=== PATIENT | male | born 1995 | race African-American/Black ===

== ENCOUNTER 2017-09-21 18:50 | Emergency (ER) | payer BC ==
[2017-09-21 19:02] VITALS: BP 148/78
--- NOTE | 2017-09-21 21:10 | UC ---
Lower Extremity/Ankle HPI - HPI Summary HPI Summary: 22 y/o male presents to the urgent care c/o sudden left foot pain after a sprinting drill at football practice this morning. Pt reports pain is sharp, constant, 8/10 over the top of the foot and at the base of great toe. Pain is wore when he flexes the foot. He has not taking anything to alleviate pain or applied ice. Pt is able to bear weight and amulate s/o any difficulty. Pt denies fever, numbness and tingling, SOB, chest pain, abdominal pain, N/V/D. - History of Current Complaint Chief Complaint: UCLowerExtremity Stated Complaint: LEFT FOOT INJURY Time Seen by Provider: 09/21/17 21:01 Hx Obtained From: Patient Onset/Duration: Sudden Onset, Lasting Hours - 8hrs, Still Present Severity Initially: Moderate Severity Currently: Moderate Pain Intensity: 8 Pain Scale Used: 0-10 Numeric Aggravating Factor(s): Ambulation Alleviating Factor(s): Rest Able to Bear Weight: Yes - Risk Factors Gout Risk Factors: Negative DVT Risk Factors: Negative Septic Arthritis Risk Factor: Extremes of Age - Allergies/Home Medications Allergies/Adverse Reactions: Allergies Allergy/AdvReac Type Severity Reaction Status Date / Time No Known Allergies Allergy Verified 09/21/17 19:02 PMH/Surg Hx/FS Hx/Imm Hx Previously Healthy: Yes - Pt denies PMHX - Surgical History Surgical History: None - Family History Known Family History: Positive: Hypertension - Social History Occupation: Student Lives: With Family Alcohol Use: Weekly Substance Use Type: None Smoking Status (MU): Never Smoked Tobacco Review of Systems Constitutional: Negative Skin: Negative Eyes: Negative ENT: Negative Respiratory: Negative Cardiovascular: Negative Gastrointestinal: Negative Genitourinary: Negative Motor: Decreased ROM - LF foot Neurovascular: Negative Musculoskeletal: Decreased ROM - LF foot, Other: - LF foot pain s/p injury Neurological: Negative Psychological: Negative Is Patient Immunocompromised?: No All Other Systems Reviewed And Are Negative: Yes Physical Exam Triage Information Reviewed: Yes Vital Signs: Initial Vital Signs Temp 98.9 F 09/21/17 18:59 Pulse 78 09/21/17 18:59 Resp 16 09/21/17 18:59 BP 148/78 09/21/17 18:59 Pulse Ox 99 09/21/17 18:59 - Additional Comments Vital Signs Reviewed: Yes General : well developed, well nourished male w/o any apparent distress Eyes: Positive: Conjunctiva Clear - PERRLA, EOMI ENT: Positive: Normal ENT inspection, Hearing grossly normal, Pharynx normal, TMs normal Neck: Positive: Supple, Nontender, No Lymphadenopathy Respiratory: Positive: Chest non-tender, Lungs clear, Normal breath sounds, No respiratory distress Cardiovascular: Positive: RRR, No Murmur, Pulses Normal Abdomen Description: Positive: Nontender, No Organomegaly, Soft. Negative: CVA Tenderness (R), CVA Tenderness (L) Bowel Sounds: Positive: Present Musculoskeletal: Positive: Strength Intact, ROM Intact, No Edema, LF Foot/Toes : Pt is able to bear weight w/o limping. No surface trauma, ecchymosis, lesions, ulcers or break in skin integrity. Mild erythema over the dorsal side of foot around navicular bone. No bony step-off, Poin tenderness to palpation over the dorsal side of mid foot , no tenderness of hindfoot, Decrease plantar/dorsiflexion, inversion/eversion due to pain. Distal motor and neurovascular status are intact.FROM of all toes Neurological Exam: Normal Psychological Exam: Normal Skin Exam: Normal Lower Extremity Course/Dx - Course Course Of Treatment: 22 y/o male presents to the urgent care c/o sudden left foot pain after a sprinting drill at football practice this morning. Pt reports pain is sharp, constant, 8/10 over the top of the foot and at the base of great toe. Pain is wore when he flexes the foot. He has not taking anything to alleviate pain or applied ice. Pt is able to bear weight and amulate s/o any difficulty. Pt denies fever, numbness and tingling, SOB, chest pain, abdominal pain, N/V/D. Hx obtained. LF foot X-ray ordered, Impression:There was no recent acute fracture,likely old injury at the disctal interphalengeal joint of the left great toe as per radiologist. Pt's foot immobilized with pranay-bandage and given a post-op shoe to avoid flexion. Advised RICE, and Rx Naproxen PO for pain , If not improvement of symptoms to f/u with Orthopedic DR referral for further evaluation and treatment. Pt's BP is elevated today advised to decrease salt in diet, monitor BP and f/u with PCP for further management. Pt understood and agreed with D/C instructions - Differential Dx/Diagnosis Differential Diagnosis/HQI/PQRI: Contusion, Fracture (Closed), Sprain, Strain, Tendonitis Provider Diagnoses: 1- Left foot pain s/p injury. 2- Left #1 distal IPJ old fracture. 3- Elevated BP w/o Hx of HTN Discharge - Discharge Plan Condition: Stable Disposition: HOME Prescriptions: Naproxen [Naproxen 500 mg] 500 mg PO Q8H PRN #30 tab PRN Reason: Pain Patient Education Materials: Foot Sprain (ED), Low-Sodium Diet (ED) Referrals: [facility] [place] [facility] [Outside] - 1 Week Conrad Win MD [Medical Doctor] - 1 Week Additional Instructions: 1-Please take medications as directed to alleviate pain and swelling. 2-Please apply ice, keep your foot immobilized with the Pranay bandage and post-op shoe. Avoid strenuous exercise or standing for long periods of time 3- Please f/u with your Orthopedic DR Win in 1 week if not improvement of symptoms for further evaluation and treatment. 4-Your BP is elevated today. please decrease salt in your diet, monitor BP and if it continues to be elevated please f/u with your PCP for further management
--- NOTE | 2017-09-21 21:37 | RAD ---
Indication: Left foot pain. 3 views of left foot demonstrates no fracture is noted. There is bony fragment adjacent to the medial aspect of the distal end of the proximal phalanx. This is likely old. No recent fracture is identified. IMPRESSION: Likely old injury at the distal interphalangeal joint of the great toe. No recent fracture is identified.
== END 2017-09-21 22:20 | disposition home or self-care (01) ==
LOC: UCCORT 18:50
DX: M79.672 Pain in left foot (principal); S92.422D Displaced fracture of distal phalanx of left great toe, subsequent encounter for fracture with routine healing; X58.XXXD Exposure to other specified factors, subsequent encounter; R03.0 Elevated blood-pressure reading, without diagnosis of hypertension
CPT/HCPCS: 99212; G0463

== ENCOUNTER 2018-05-05 18:52 | Emergency (ER) | payer BC ==
[2018-05-05 20:30] VITALS: BP 149/72
--- NOTE | 2018-05-05 20:59 | UC ---
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 Has had persistent pain with deep inspiration and movement. No analgesics used. No vomiting. No head injury, neck pain, no abdominal pain or vomiting. - History Of Current Complaint Chief Complaint: UCGeneralIllness Stated Complaint: RIB INJURY Time Seen by Provider: 05/05/18 20:30 Hx Obtained From: Patient Onset/Duration: Sudden Onset, Lasting Hours Onset Of Pain: Immediate Severity Initially: Moderate Severity Currently: Moderate Pain Intensity: 7 Mechanism Of Injury: Blunt Trauma, Direct Blow Aggravating Factor(s): Movement, Deep Breathing Alleviating factor(s): Rest Associated Signs And Symptoms: Positive: SOB - now resolved, felt out of breath initially. 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 Gastrointestinal: Negative Genitourinary: Negative Motor: Negative Neurovascular: Negative Musculoskeletal: Negative Neurological: Negative Psychological: Negative Is Patient Immunocompromised?: No All Other Systems Reviewed And Are Negative: Yes Physical Exam Triage Information Reviewed: Yes Appearance: Well-Appearing, Pain Distress - moderate with movement Vital Signs: Initial Vital Signs Temp 98.2 F 05/05/18 20:21 Pulse 56 05/05/18 20:21 Resp 14 05/05/18 20:21 BP 149/72 05/05/18 20:21 Pulse Ox 100 05/05/18 20:21 ENT: Positive: Pharynx normal Dental Exam: Normal Neck: Positive: Supple, Nontender, No Lymphadenopathy Respiratory Exam: Other - tenderness to palpation left lower chest wall in anterior axillary line. No bruising or deformity. Respiratory: Positive: Lungs clear, Normal breath sounds. Negative: Decreased breath sounds, Accessory muscle use Cardiovascular: Positive: RRR, No Murmur Abdomen Description: Positive: Nontender, No Organomegaly, Soft Bowel Sounds: Positive: Present Musculoskeletal Exam: Other - moving slowly, but neck and spinal movements normal. Musculoskeletal: Positive: Strength Intact Neurological: Positive: Alert, Muscle Tone Normal Skin Exam: Normal Diagnostics - Laboratory Diagnostic Studies Completed/Ordered: Xray left rib views without evidence of fracture per M H read. Normal chest with normal lung honeycutt. No radiology read available. Truncal Trauma Course/Dx - Course Course Of Treatment: analgesics and rest. - Differential Dx/Diagnosis Differential Diagnosis/HQI/PQRI: Chest Wall Contusion, Spleen Trauma, Pulmonary Contusion, Rib Fracture Provider Diagnoses: chest wall contusion Discharge - Sign-Out/Discharge Documenting (check all that apply): Patient Departure All imaging exams completed and their final reports reviewed: No - Discharge Plan Condition: Stable Disposition: HOME Patient Education Materials: Rib Contusion (ED) Referrals: No Primary Care Phys,NOPCP [Primary Care Provider] - Additional Instructions: The radiologist's read of the rib xrays will not be available until tomorrow. I do not see a fracture, but you will be called if the radiologist interprets the films differently. Continue iburpofen 800mg three times daily. You can ice and heat the area of impact alternately. Follow up if you have increasing pain, shortness of breath, or develop abdominal pain or vomiting. - Billing Disposition and Condition Condition: STABLE Disposition: Home
[2018-05-05] MEDS ORDERED: Ibuprofen TAB* 400 MG PO ONE (21:04)
--- NOTE | 2018-05-06 07:59 | RAD ---
Indication: Left chest pain. 2 views of the left chest including dual energy PA views as well as 3 views of left ribs demonstrate no fracture of the left ribs. No pneumothorax is noted. Lung honeycutt are clear. IMPRESSION: No fracture of the left ribs. Lungs are clear.
--- NOTE | 2018-05-09 11:56 | UC ---
- Progress Note Progress Note: Patient Name: STEVEN AVILA Medical Record#: [id number] Ordering Physician: Helga Vidales MD Acct.#: [id number] : 1995 Age: 22 Sex: M Location: [facility] Exam Date: 05/05/182029 ADM Status: DEP ER Order Information: RIBS LT UNI W/PA CH MIN 3 VWS Accession Number: [id number] CPT: 12544 Indication: Left chest pain. 2 views of the left chest including dual energy PA views as well as 3 views of left ribs demonstrate no fracture of the left ribs. No pneumothorax is noted. Lung honeycutt are clear. IMPRESSION: No fracture of the left ribs. Lungs are clear. <Electronically signed by Alyse Sapp MD in [place]> 05/06/18755 Dictated By: Alyse Sapp MD Dictated Date/Time: 05/06/18755 Transcribed Date/Time: 05/06/18754 Copy to: CC:Helga Vidales MD; No Primary Care Phys,NOPCP Imaging - [facility] Imaging [facility] [address] [address] ph ([phone] ph ([phone]) ph ([phone]) This report is only to be considered final once signed by the Provider(s) as displayed in the "<Electronically Signed by >" field (s). Absence of a signature indicates the report is in a draft status and still needs to be finalized. In the event this document was created by someone other than the signing Provider, the individual initiating the document will be listed in the "Entered by:" or "Dictated by:" honeycutt. 1 of 1 Discharge - Sign-Out/Discharge Documenting (check all that apply): Post-Discharge Follow Up All imaging exams completed and their final reports reviewed: Yes - Discharge Plan Condition: Stable Disposition: HOME Patient Education Materials: Rib Contusion (ED) Referrals: No Primary Care Phys,NOPCP [Primary Care Provider] - Additional Instructions: The radiologist's read of the rib xrays will not be available until tomorrow. I do not see a fracture, but you will be called if the radiologist interprets the films differently. Continue iburpofen 800mg three times daily. You can ice and heat the area of impact alternately. Follow up if you have increasing pain, shortness of breath, or develop abdominal pain or vomiting. - Billing Disposition and Condition Condition: STABLE Disposition: Home
== END 2018-05-05 21:25 | disposition home or self-care (01) ==
LOC: UCCORT 18:52
DX: S20.219A Contusion of unspecified front wall of thorax, initial encounter (principal); W50.0XXA Accidental hit or strike by another person, initial encounter; Y93.61 Activity, american tackle football; Y92.321 Football field as the place of occurrence of the external cause
CPT/HCPCS: 99212; A9270-GY; G0463

== ENCOUNTER 2018-06-19 12:44 | Emergency (ER) | payer BC ==
[2018-06-19 13:48] VITALS: BP 138/97
[2018-06-19] MEDS ORDERED: Ibuprofen TAB* 600 MG PO ONE (14:02)
--- NOTE | 2018-06-19 14:06 | UC ---
Upper Extremity HPI - HPI Summary HPI Summary: Patient was playing football, fell to the right lebow and now there is a large amount of swelling and pain. - History of Current Complaint Chief Complaint: UCUpperExtremity Stated Complaint: R ELBOW PAIN AND SWELLING - FOOTBALL INJ Time Seen by Provider: 06/19/18 13:59 Hx Obtained From: Patient ?: No Onset/Duration: Sudden Onset Severity Initially: Moderate Severity Currently: Moderate Pain Intensity: 6 Aggravating Factor(s): Movement Alleviating Factor(s): Nothing Associated Signs And Symptoms: Positive: Swelling, Numbness/Tingling - Allergies/Home Medications Allergies/Adverse Reactions: Allergies Allergy/AdvReac Type Severity Reaction Status Date / Time No Known Allergies Allergy Verified 06/19/18 13:48 PMH/Surg Hx/FS Hx/Imm Hx Previously Healthy: Yes - Surgical History Surgical History: None - Family History Known Family History: Positive: Hypertension - Social History Alcohol Use: Weekly Alcohol Amount: 6/week Substance Use Type: None Smoking Status (MU): Never Smoked Tobacco - Immunization History Most Recent Tetanus Shot: UTD Review of Systems Constitutional: Negative Skin: Negative Eyes: Negative ENT: Negative Respiratory: Negative Cardiovascular: Negative Gastrointestinal: Negative Genitourinary: Negative Motor: Negative Neurovascular: Negative Musculoskeletal: Arthralgia, Edema, Myalgia Neurological: Negative Psychological: Negative Is Patient Immunocompromised?: No All Other Systems Reviewed And Are Negative: Yes Physical Exam Triage Information Reviewed: Yes Appearance: Well-Appearing, Well-Nourished, Pain Distress Vital Signs: Initial Vital Signs Temp 98.2 F 06/19/18 13:39 Pulse 71 06/19/18 13:39 Resp 18 06/19/18 13:39 BP 138/97 06/19/18 13:39 Pulse Ox 1 06/19/18 13:39 Vital Signs Reviewed: Yes Eye Exam: Normal ENT Exam: Normal Dental Exam: Normal Neck exam: Normal Respiratory Exam: Normal Respiratory: Positive: Chest non-tender, Lungs clear, Normal breath sounds Cardiovascular Exam: Normal Cardiovascular: Positive: RRR, No Murmur, Pulses Normal Abdominal Exam: Normal Abdomen Description: Positive: Nontender, No Organomegaly, Soft Musculoskeletal: Positive: 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, ROM Limited @ - due to swelling, Edema @ - right lebow and forearm Neurological Exam: Normal Psychological Exam: Normal Skin Exam: Normal Upper Extremity Course/Dx - Course Course Of Treatment: hx obtained, exam performed ,meds reviewed, xray obtained, no fracture noted, educated on RICE - Differential Dx/Diagnosis Differential Diagnosis/HQI/PQRI: Bursitis, Contusion, Strain, Sprain Provider Diagnoses: Elbow contusion/ bursitis Discharge - Sign-Out/Discharge Documenting (check all that apply): Patient Departure All imaging exams completed and their final reports reviewed: Yes - Discharge Plan Condition: Stable Disposition: HOME Patient Education Materials: Elbow Bursitis (ED) Referrals: Conrad Win MD [Medical Doctor] - No Primary Care Phys,NOPCP [Primary Care Provider] - Additional Instructions: 1. Ice for next 48 hours and then heat. 2. Use the compression sleeve and keep arm elevated at rest. 3. Follow up with MD if not improving in the next week. - Billing Disposition and Condition Condition: STABLE Disposition: Home
--- NOTE | 2018-06-19 14:35 | RAD ---
HISTORY: fall 06/18, swelling and pain COMPARISONS: None VIEWS: 4 , Frontal, lateral, and oblique views of the right elbow FINDINGS: BONE DENSITY: Normal. BONES: There is no displaced fracture. JOINTS: There is no arthropathy. ALIGNMENT: There is no dislocation. SOFT TISSUES: Unremarkable. OTHER FINDINGS: None. IMPRESSION: NO ACUTE OSSEOUS INJURY. IF SYMPTOMS PERSIST, RECOMMEND REPEAT IMAGING.
== END 2018-06-19 15:09 | disposition home or self-care (01) ==
LOC: UCCORT 12:44
DX: S50.01XA Contusion of right elbow, initial encounter (principal); M71.9 Bursopathy, unspecified; W18.30XA Fall on same level, unspecified, initial encounter; Y93.61 Activity, american tackle football; Y92.9 Unspecified place or not applicable
CPT/HCPCS: 99212; A9270-GY; G0463

== ENCOUNTER 2018-07-15 16:57 | Emergency (ER) | payer BC ==
[2018-07-15 17:26] VITALS: BP 132/76
--- NOTE | 2018-07-15 18:24 | UC ---
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 Took benadryl an hour ago and symptoms have improved some. Used a new body soap last night and thinks that caused them. Denies difficulty breathing. " -rash imporved by ~ 95% since taking benadryl. never had anything like this in past. ate pizza for dinner yesterday. no new foods. no shellfish or nuts. feels fine otherwise. no n/v/d. no dizziness. no swelling in lips, tongue or throat. - History of Current Complaint Chief Complaint: UCSkin Time Seen by Provider: 07/15/18 18:23 Stated Complaint: SKIN COMPLAINT (POSS REACTION) Pain Intensity: 0 - Allergy/Home Medications Allergies/Adverse Reactions: Allergies Allergy/AdvReac Type Severity Reaction Status Date / Time No Known Allergies Allergy Verified 07/15/18 17:23 Home Medications: Home Medications diPHENhydraMINE PO* [Benadryl PO 25 MG TAB*] 50 mg PO ONCE 07/15/18 [History Confirmed 07/15/18] Review of Systems All Other Systems Reviewed And Are Negative: Yes Constitutional: Positive: Negative Skin: Positive: Rash Eyes: Positive: Negative ENT: Positive: Negative Respiratory: Positive: Negative Cardiovascular: Positive: Negative Gastrointestinal: Positive: Negative Genitourinary: Positive: Negative Motor: Positive: Negative Neurovascular: Positive: Negative Musculoskeletal: Positive: Negative Neurological: Positive: Negative Psychological: Positive: Negative Is Patient Immunocompromised?: No PMH/Surg Hx/FS Hx/Imm Hx Previously Healthy: Yes - Surgical History Surgical History: None - Family History Known Family History: Positive: Hypertension - Social History Alcohol Use: Weekly Alcohol Amount: 6/week Substance Use Type: None Smoking Status (MU): Never Smoked Tobacco - Immunization History Most Recent Tetanus Shot: UTD Physical Exam Triage Information Reviewed: Yes Appearance: Well-Appearing, No Pain Distress, Well-Nourished Vital Signs: Initial Vital Signs Temp 98.4 F 07/15/18 17:21 Pulse 60 07/15/18 17:21 Resp 14 07/15/18 17:21 BP 132/76 07/15/18 17:21 Pulse Ox 100 07/15/18 17:21 Vital Signs Reviewed: Yes Eye Exam: Normal ENT Exam: Normal - no swelling of lips, tongue or uvula ENT: Positive: Pharynx normal, TMs normal, Uvula midline. Negative: Pharyngeal erythema, Nasal congestion, Nasal drainage, Tonsillar swelling, Tonsillar exudate, Muffled voice, Hoarse voice Dental Exam: Normal Neck exam: Normal Neck: Positive: Supple, Nontender, No Lymphadenopathy Respiratory: Positive: Lungs clear, Normal breath sounds, No respiratory distress, No accessory muscle use. Negative: Crackles, Rhonchi, Stridor, Wheezing Cardiovascular Exam: Normal Cardiovascular: Positive: RRR, No Murmur, Pulses Normal Abdomen Description: Positive: Nontender, Soft Bowel Sounds: Positive: Present Musculoskeletal Exam: Normal Neurological Exam: Normal Psychological Exam: Normal Skin: Positive: Rashes - minimal small spots of flat erythema. compared to photo he took prior to arrival showed significant urticara in b/l extesnor arms. Course/Dx - Course Course Of Treatment: Urticaria - possibly d/t new soap he used yesterday. he will not use the soap again. see instructions to pts for details. 911 with any SOB or swelling. take benadryl 50mgs immediatel. -medrol dose pack. -We discussed risks of prednisone including but not limited to anxiety, agitation, insomnia, GI upset, elevated blood pressures and blood sugar readings, adrenal crisis and avascular necrosis of the hip. -zyrtec 10mgs daily & ranitidine 150mgs bid x 14 d each - Differential Diagnoses - Skin Complaint Differential Diagnoses: Contact Dermatitis, Urticaria - Diagnoses Provider Diagnoses: Urticaria Discharge - Sign-Out/Discharge Documenting (check all that apply): Patient Departure All imaging exams completed and their final reports reviewed: No Studies - Discharge Plan Condition: Stable Disposition: HOME Prescriptions: methylPREDNISolone [Medrol Dosepak 4 MG*] 4 mg PO DAILY #1 marv Patient Education Materials: Urticaria (ED) Referrals: No Primary Care Phys,NOPCP [Primary Care Provider] - Additional Instructions: -Make sure to take all of the prednisone. -You should take 14 days each of cetirizine 10mgs daily & ranitidine 150mgs every 12 hours. -You should go directly to the ER via 911 if you develop any swelling in your lip, tongue or throat or any shortness of breath. You should also take 50mgs of benadryl immediately. If you develop further hives, you should have allergy testing done. 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 - Billing Disposition and Condition Condition: STABLE Disposition: Home
== END 2018-07-15 18:57 | disposition home or self-care (01) ==
LOC: UCCORT 16:57
DX: L50.9 Urticaria, unspecified (principal)
CPT/HCPCS: 99212; G0463